=== PATIENT | male | born 1985 | race Two or more races ===

== ENCOUNTER 2024-10-12 03:00 | Emergency (ER) | payer MEDICAID, SELFPAY ==
[2024-10-12 03:07] VITALS: BP 149/91; PULSE 77; RESP 17; TEMP 36.7; O2SAT 99; BMI 23.4
--- NOTE | 2024-10-12 03:37 | PD.EDRME ---
Rapid Medical Screening Exam [facility] Arrival date/time: 10/12/24 03:00 Chief Complaint: Skin/Abscess/Foreign Body Vital signs: Vital Signs Temperature 98.1 F 10/12/24 03:07 Pulse Rate 77 10/12/24 03:07 Respiratory Rate 17 10/12/24 03:07 Blood Pressure 149/91 H 10/12/24 03:07 Pulse Oximetry (%) 99 10/12/24 03:07 Oxygen Delivery Method Room Air 10/12/24 03:07 [facility] Narrative: 38yo male BIBA from home presents to the ED for a chief complaint of a spider bite.
[2024-10-12 03:58] VITALS: PULSE 98; RESP 18; O2SAT 99; BMI 23.0
[2024-10-12 04:14] LABS: Basophils % (Auto) 0 % (0-2.5); Eosinophils # (Auto) 0.3 Thou/mm3 (0.0-0.5); Eosinophils % (Auto) 3 % (0-10); Hematocrit 36.6 % (41.0-53.0); Hemoglobin 12.6 g/dL (13.5-16.0); Immature Granulocytes % (Auto) 0 % (0-0); Immature Granulocytes Auto 0.03 Thou/mm3 (0.00-0.00); Lymphocytes # (Auto) 1.5 Thou/mm3 (1.0-4.8); Lymphocytes % (Auto) 17 % (10-50); Mean Corpuscular HGB Conc 34.4 g/dl (31.0-37.0); Mean Corpuscular Hemoglobin 30.6 pg (25.0-35.0); Mean Corpuscular Volume 89 fL (80-100); Monocytes # (Auto) 0.9 Thou/mm3 (0.0-0.8); Monocytes % (Auto) 11 % (0-12); Neutrophils # (Auto) 5.9 Thou/mm3 (1.8-7.7); Neutrophils % (Auto) 68 % (37-80); Nucleated Red Blood Cell % 0 /100 WBC (0); Platelet Count 221 Thou/mm3 (140-440); RDW Standard Deviation 43.2 fL (35.1-43.9); Red Blood Count 4.12 Miln/mm3 (4.50-5.90); White Blood Count 8.6 Thou/mm3 (3.8-10.6)
[2024-10-12 04:30] LABS: Acetaminophen 3.8 mcg/mL (10.0-20.0); Alanine Aminotransferase 19 U/L (10-49); Albumin, Serum 3.9 gm/dL (3.5-5.0); Albumin/Globulin Ratio 1.4 (1.2-2.2); Alkaline Phosphatase 54 U/L (46-116); Anion Gap 7 (7-16); Aspartate Amino Transferase 23 U/L (0-34); BUN/Creatinine Ratio 23 Ratio (12-20); Bilirubin,Total 0.3 mg/dL (0.3-1.2); Blood Urea Nitrogen 14 mg/dL (9-23); Calcium (Corrected) 9.1 mg/dL (8.5-10.1); Carbon Dioxide 24.3 mMol/L (20.0-31.0); Chloride 110 mMol/L (98-107); Creatinine (Component) 0.6 mg/dL (0.6-1.3); Estimated Creatinine Clearance 180.3 mL/min (>60); Globulin 2.8 gm/dL (2.3-3.5); Glucose 123 mg/dL (74-106); Osmolality,Calculated 282 (275-295); Potassium 3.4 mMol/L (3.4-5.1); Salicylate < 3.0 mg/dL; Sodium 141 mMol/L (136-145); Total Protein 6.7 gm/dL (5.7-8.2); eGFR > 60 See Note
[2024-10-12 04:49] VITALS: BP 125/82; PULSE 73; RESP 19; TEMP 36.5; O2SAT 98
[2024-10-12 06:07] VITALS: BP 103/71; PULSE 65; RESP 18; TEMP 37.1; O2SAT 99
--- NOTE | 2024-10-12 06:11 | PC.NURSE ---
Pt sleeping. arouses to voice.
[2024-10-12 06:13] LABS: Alcohol, Urine Negative (Negative); Amphetamine/Methamp Scrn,U Positive (Negative); Barbiturate Screen,Urine Negative (Negative); Benzodiazepines Screen,Urine Negative (Negative); Benzoylecgonine Screen, Ur Negative (Negative); Fentanyl Screen,Urine Negative (Negative); Opiate Screen,Urine Negative (Negative); THC Screen,Urine Negative (Negative)
[2024-10-12 06:15] VITALS: BP 103/71; PULSE 62; RESP 16; O2SAT 99
--- NOTE | 2024-10-12 06:43 | PD.EDSKIN ---
ED Skin Abcess FB-RME/HPI General Chief complaint: Skin/Abscess/Foreign Body Stated complaint: SPIDER BITE Time Seen by Provider: 10/12/24 03:55 Arrival date/time: 10/12/24 03:00 RME / HPI RME / HPI narrative: 38yo male ZABRINA from home presents to the ED for a chief complaint of a spider bite. DR. FAUST MAIN ED EVALUATION 38 year old male presents to the ED for evaluation of 5-day old spider bite to the left thigh. Reports there is a circular lesion that is worsening. Accompanied by pain to the surrounding area, redness, and draining puss. Patient reports he had been scratching it. No other complaints reported. Denies fevers, chills, rashes. Related Data Previous Rx's ?Medication ?Instructions ?Recorded benzonatate 100 mg capsule 100 mg PO TID PRN cough #30 caps 10/03/18 (Tessalon Perles) codeine 10 mg-guaifenesin 100 mg/5 5 ml PO QHSPRN PRN cough #118 mL 10/03/18 mL oral liquid (Guaifenesin AC) albuterol sulfate 90 mcg/actuation 2 puff inhalation QID #18 grams 06/17/21 aerosol inhaler albuterol sulfate 90 mcg/actuation 2 puff inhalation QID PRN 06/17/21 aerosol inhaler shortness of breath or wheezing #18 grams azithromycin 250 mg tablet See Rx Instructions PO .COMPLEX #6 06/17/21 tabs ibuprofen 800 mg tablet 800 mg PO TID PRN pain #30 tabs 03/10/23 sulfamethoxazole 800 1 tab PO Q12H #14 tabs 02/22/24 mg-trimethoprim 160 mg tablet (Bactrim DS) cephalexin 500 mg capsule 500 mg PO BID 10 days #20 caps 10/12/24 sulfamethoxazole 800 1 tab PO BID 10 days #20 tabs 10/12/24 mg-trimethoprim 160 mg tablet (Bactrim DS) Allergies Allergy/AdvReac Type Severity Reaction Status Date / Time No Known Allergies Allergy Verified 08/31/24 10:08 Review of Systems Review of Systems Narrative Review of Systems: GEN: No fever, no chills HEENT: No ear pain, no congestion, no sore throat PULM: No shortness of breath, no cough, no congestion CV: No chest pain, no palpitations GI: No nausea, no vomiting, no diarrhea, no pain, no constipation : No frequency, no urgency and no dysuria MUSC/SKEL No joint pain, no back pain SKIN: +lesion on left thigh. No rash NEURO: No weakness, no headache Past Medical History Past Medical History CARDIAC: Negative Congestive Heart Failure RESPIRATORY: Negative Chronic Obstructive Pulmonary Disease (COPD) GENITOURINARY: Negative Renal Disease ENDOCRINE: Negative Diabetes Mellitus Type 1 or Diabetes Mellitus Type 2 Social History SMOKING STATUS: Never smoker ED Exam Narrative Physical exam: GENERAL APPEARANCE: Well hydrated, well nourished, in no acute distress. VITALS: All vitals were reviewed and the pulse ox is 99% on room air which is normal according to my interpretation. HEENT: Normocephalic, atramatic. Moist oromucosa. No jaundice CARDIOVASCULAR: Heart regular without S3-S4 or murmur. LUNGS/CHEST: Clear to auscultation bilaterally. Normal inspection. ABDOMEN: Soft, nontender, with normal bowel sounds. Normal inspection and palpation. EXTREMITIES: There is a flat 2cm in diameter superficial lesion to the lateral left thigh with redness and scratch on top, there is scab formation, no abscess, no fluctuance. No edema, clubbing, or cyanosis. SKIN: Warm and dry without rashes. MUSCULOSKELETAL: Normal inspection. No gross deformity, full ROM all extremities NEURO: Alert and oriented x3. Cranial nerves II through XII grossly intact. There are no other motor or sensory deficits noted. PSYCHIATRIC: Normal mood and affect. No psychosis Course Quality Measures none Orders Category Date Time Status Acetaminophen Stat Lab 10/12/24 04:01 Completed Alcohol, Urine Stat Lab 10/12/24 05:17 Completed CBC Stat Lab 10/12/24 04:01 Completed Comprehensive Metabolic Panel Stat Lab 10/12/24 04:01 Completed Drug Screen,Urine Stat Lab 10/12/24 05:17 Completed Salicylate Stat Lab 10/12/24 04:01 Completed Tetanus, Diphtheria Toxoids/Pf [Tenivac-Adult] Med 10/12/24 06:48 Discontinued 0.5 ml IMI .ONCE ONE Trimethoprim/Sulfa 160/800 Ds [Bactrim Ds] Med 10/12/24 06:48 Discontinued 1 tab PO X1 ONE cephALEXin [Keflex] Med 10/12/24 06:48 Discontinued 500 mg PO X1 ONE Vital Signs Vital signs: Vital Signs Temperature 98.1 F 10/12/24 03:07 Pulse Rate 77 10/12/24 03:07 Respiratory Rate 17 10/12/24 03:07 Blood Pressure 149/91 H 10/12/24 03:07 Pulse Oximetry (%) 99 10/12/24 03:07 Oxygen Delivery Method Room Air 10/12/24 03:07 Skin / Abscess / Foreign Body MDM Narrative MDM Narrative:: On exam he had a lesion in his right distal lateral upper leg. There is a superficial ulceration measuring approximately 2 cm in diameter with early scab formation. There is a slight rim of erythema around this superficial ulceration measuring approximately 3 cm in diameter. There is no fluctuance. No evidence of abscess. No pus. No foul odor. No discharge. It seems that the lesion is in the healing phase. There is no need for debridement. There is no incision and drainage needed because there is no abscess. In the emergency department we are giving him tetanus vaccine, Keflex and Bactrim by mouth. Lab results showing a normal CBC. Normal CMP. Alcohol negative. Aspirin negative. Tylenol negative. And U tox is positive for methamphetamine which he openly admits to having used it Patient data External records reviewed:: [facility] previous records (I reviewed ED visit on 08/31/2024) Clinical information provided by:: patient Social determinants that could affect healthcare access:: substance use (Daily methamphetamine use ) Patient has the following chronic illnesses:: No chronic medical history reported How is presenting disease/condition affected by chronic disease/condition?: no chronic disease Evaluation data The following diagnostics were reviewed and interpreted by me:: lab results Lab and/or radiology exams considered but not ordered:: None Interpretation Summary: As noted above Medications / Prescriptions Medications or Prescriptions considered but not ordered:: None Medication administrations:: Medication Administration History Discontinued Medications Cephalexin HCl (Cephalexin 250 Mg Capsule) 500 mg PO X1 ONE Stop: 10/12/24 06:49 Tetanus/Diphtheria Toxoids (Tetanus,Diphtheria Toxoids/Pf (Adult) 0.5 Ml Syringe) 0.5 ml IMi .ONCE ONE Stop: 10/12/24 06:49 Trimethoprim/Sulfamethoxazole (Trimethoprim/Sulfa 160/800 Ds Tablet) 1 tab PO X1 ONE Stop: 10/12/24 06:49 See above Consultations Consultation(s) initiated? (list below): No Diagnosis Skin/Abscess Differential Diagnosis: abscess of skin or subcutaneous tissue, cellulitis, insect bites and contact dermatitis Most likely diagnosis given after review of the tests above:: Cellulitis Methamphetamine use Admission Indicated Admission indicated?: not indicated Admission Request Was there a request for admission?: No Disposition Plan Disposition Plan: Discharge Discharge Attestation Discharge Attestation: The patient and all family members were given an opportunity to ask questions and understood the discharge instructions. Discharge instructions specifically effects, indications for sooner follow up or return to the emergency department, and the expected course of current diagnosis. Patient condition: Stable Discharge Plan Plan Patient Disposition: HOME (Self Care) Disposition Comment: Stable for OR home Prescriptions/Referrals Prescriptions/Med Rec: New cephalexin 500 mg capsule 500 mg PO BID 10 Days Qty: 20 0RF sulfamethoxazole-trimethoprim [Bactrim DS] 800-160 mg tablet 1 tab PO BID 10 Days Qty: 20 0RF No Action albuterol sulfate 90 mcg/actuation HFA aerosol inhaler 2 puff inhalation QID PRN (Reason: shortness of breath or wheezing) Qty: 18 0RF azithromycin 250 mg tablet See Rx Instructions .ROUTE .COMPLEX Qty: 6 0RF Rx Instructions: take 500 mg today (day 1), then 250 mg for 4 days (days 2-5) albuterol sulfate 90 mcg/actuation HFA aerosol inhaler 2 puff inhalation QID Qty: 18 0RF benzonatate [Tessalon Perles] 100 mg capsule 100 mg PO TID PRN (Reason: cough) Qty: 30 0RF codeine-guaifenesin [Guaifenesin AC] 10-100 mg/5 mL liquid 5 ml PO QHSPRN PRN (Reason: cough) Qty: 118 0RF Rx Instructions: Do not take at the same time as you take your lorazepam if you are still taking ibuprofen 800 mg tablet 800 mg PO TID PRN (Reason: pain) Qty: 30 0RF sulfamethoxazole-trimethoprim [Bactrim DS] 800-160 mg tablet 1 tab PO Q12H Qty: 14 0RF Referrals: Kendal Mercado PA-C [Primary Care Provider] - In 1 week Problem List Clinical Impression: Cellulitis Patient/Caregiver Discharge Instructions Education Materials: ED Cellulitis Additional Instructions: Take medications as prescribed. See your doctor or return in 3 days for recheck. Return sooner if any problem. Print Language: Estonian Stand Alone Forms: [employer] Award Info., Patient Portal Info Letter
[2024-10-12] MEDS: cephALEXin 250 MG CAPSULE 500 MG PO (07:02)
[2024-10-12] MEDS: TRIMETHOPRIM/SULFA 160/800 DS TABLET 1 TAB PO (07:03)
[2024-10-12 07:10] VITALS: BP 132/89; PULSE 73; RESP 18; TEMP 36.5; O2SAT 98
[2024-10-12] MEDS: TETANUS,DIPHTHERIA TOXOIDS/PF (ADULT) 0.5 ML SYRINGE IMi (07:12)
== END 2024-10-12 07:50 | disposition home or self-care (01) ==
PROVIDERS: Emergency Medicine; Emergency Provider Emergency Medicine; PCP Physician Assistant
DX: L03.116 Cellulitis of left lower limb (principal)
CPT/HCPCS: 36415; 80053; 80307; 80320; 80329; 85025; 90471; 90714; 99283; A9270; G0480

== ENCOUNTER 2024-11-03 23:49 | Emergency (ER) | payer MEDICAID, SELFPAY ==
[2024-11-03 23:55] VITALS: BP 124/73; PULSE 90; RESP 16; TEMP 37.1; O2SAT 98
[2024-11-03 23:57] VITALS: PULSE 99; RESP 16; O2SAT 95; BMI 25.2
--- NOTE | 2024-11-04 00:25 | PD.EDFALL ---
ED Fall Injury RME/HPI General Chief Complaint: Fall Stated Complaint: BILATERAL FOOT PAIN Time Seen by Provider: 11/04/24 00:04 Source: patient, RN notes reviewed and old records reviewed Arrival date/time: 11/03/24 23:49 Mode of arrival: EMS Limitations: no limitations RME / HPI RME / HPI Narrative: 39yom presents to ED via EMS for fall approximately 10 feet off a roof this afternoon. Patient states he missed a step taking down [employer] lights. He c/o left ankle and left elbow pain. Also reports right foot pain and left knee pain. Denies head injury. Aspirin taken at home with some relief. Related Data Previous Rx's ?Medication ?Instructions ?Recorded benzonatate 100 mg capsule 100 mg PO TID PRN cough #30 caps 10/03/18 (Tessalon Perles) codeine 10 mg-guaifenesin 100 mg/5 5 ml PO QHSPRN PRN cough #118 mL 10/03/18 mL oral liquid (Guaifenesin AC) albuterol sulfate 90 mcg/actuation 2 puff inhalation QID #18 grams 06/17/21 aerosol inhaler albuterol sulfate 90 mcg/actuation 2 puff inhalation QID PRN 06/17/21 aerosol inhaler shortness of breath or wheezing #18 grams azithromycin 250 mg tablet See Rx Instructions PO .COMPLEX #6 06/17/21 tabs ibuprofen 800 mg tablet 800 mg PO TID PRN pain #30 tabs 03/10/23 sulfamethoxazole 800 1 tab PO Q12H #14 tabs 02/22/24 mg-trimethoprim 160 mg tablet (Bactrim DS) ibuprofen 600 mg tablet 600 mg PO Q6H PRN pain #30 tabs 11/04/24 Allergies Allergy/AdvReac Type Severity Reaction Status Date / Time No Known Allergies Allergy Verified 08/31/24 10:08 Review of Systems Review of Systems Systems Reviewed: All systems reviewed, normal except as documented Musculoskeletal Musculoskeletal: Reports arthralgias, Denies deformity and Denies joint swelling Past Medical History Surgical History OTHER SURGICAL HX: Denies past surgical history Social History SMOKING STATUS: Current some day smoker SUBSTANCE USE: marijuana ALCOHOL: Current (Social) Past Medical History Comments PMH COMMENT: Denies past medical history ED Exam General Limitations: Present no limitations General appearance: Present alert and in no apparent distress Head Head exam: Present atraumatic and normocephalic Eye Eye exam: Present normal appearance, PERRL and EOMI ENT ENT exam: Present normal exam and mucous membranes moist Neck Neck exam: Present normal inspection and full ROM Chest Chest inspection: Present normal inspection and symmetric chest wall rise Respiratory Respiratory exam: Present normal lung sounds bilaterally; Absent respiratory distress Cardiovascular Cardiovascular exam: Present regular rate and normal rhythm Extremities Exam Extremities exam: Present full ROM and tenderness (Left ankle/elbow, mild); Absent joint swelling Back Exam Back exam: Present full ROM; Absent tenderness Neurological Exam Neurological exam: Present alert and oriented X3 Psychiatric Psychiatric exam: Present normal affect and normal mood Skin Skin exam: Present warm, dry, intact and normal color Course Quality Measures none Orders Category Date Time Status Crutches .NOW Care 11/04/24 01:28 Completed jai wrap [Splint / Immobilizer] STAT Care 11/04/24 01:28 Completed XR ankle comp LT min 3V Stat Exams 11/04/24 00:26 Completed XR elbow comp LT min 3V Stat Exams 11/04/24 00:26 Completed XR foot comp RT min 3V Stat Exams 11/04/24 00:30 Completed XR knee LT 3V Stat Exams 11/04/24 00:44 Completed Ibuprofen Tab [Motrin Tab] Med 11/04/24 00:26 Discontinued 800 mg PO X1 ONE Vital Signs Vital signs: Vital Signs Temperature 98.7 F 11/03/24 23:55 Pulse Rate 90 11/03/24 23:55 Respiratory Rate 16 11/03/24 23:55 Blood Pressure 124/73 11/03/24 23:55 Pulse Oximetry (%) 98 11/03/24 23:55 Oxygen Delivery Method Room Air 11/03/24 23:55 Fall MDM Narrative MDM Narrative:: 39yom presents to ED via EMS for fall approximately 10 feet off a roof this afternoon. Patient states he missed a step taking down [place] lights. He c/o left ankle and left elbow pain. Also reports right foot pain and left knee pain. Denies head injury. Aspirin taken at home with some relief. Xrays negative. Patient is neurovascularly intact. Encouraged RICE therapy, motrin/tylenol prn pain. Stable for dc, RTED precautions given. Patient data External records reviewed:: [facility] previous records (10/12/24 ED visit for cellulitis) Clinical information provided by:: patient and EMS Social determinants that could affect healthcare access:: other (specify) (poor access to healthcare) Patient has the following chronic illnesses:: none How is presenting disease/condition affected by chronic disease/condition?: no chronic disease Evaluation data The following diagnostics were reviewed and interpreted by me:: radiology exam(s) Lab and/or radiology exams considered but not ordered:: none Interpretation Summary: ankle xrays: no fx per my read elbow xrays: no fx per my read knee xrays: no fx per my read foot xrays: no fx per my read Medications / Prescriptions Medications or Prescriptions considered but not ordered:: none Medication administrations:: Medication Administration History Discontinued Medications Ibuprofen (Ibuprofen Tab 400 Mg Tablet) 800 mg PO X1 ONE Stop: 11/04/24 00:27 Last Admin: 11/04/24 00:34 Dose: 800 mg Documented By: above medication administered in ED Consultations Consultation(s) initiated? (list below): No Diagnosis Fall Differential Diagnosis: other (fracture, dislocation, sprain, strain, contusion, msk pain) Most likely diagnosis given after review of the tests above:: Fall, contusion, sprain Admission Indicated Admission indicated?: not indicated Admission Request Was there a request for admission?: No Disposition Plan Disposition Plan: Discharge Discharge Attestation Discharge Attestation: The patient and all family members were given an opportunity to ask questions and understood the discharge instructions. Discharge instructions specifically effects, indications for sooner follow up or return to the emergency department, and the expected course of current diagnosis. Patient condition: Stable Discharge Plan Plan Patient Disposition: HOME (Self Care) Patient condition on transfer: Stable Prescriptions/Referrals Prescriptions/Med Rec: New ibuprofen 600 mg tablet 600 mg PO Q6H PRN (Reason: pain) Qty: 30 0RF No Action albuterol sulfate 90 mcg/actuation HFA aerosol inhaler 2 puff inhalation QID PRN (Reason: shortness of breath or wheezing) Qty: 18 0RF azithromycin 250 mg tablet See Rx Instructions .ROUTE .COMPLEX Qty: 6 0RF Rx Instructions: take 500 mg today (day 1), then 250 mg for 4 days (days 2-5) albuterol sulfate 90 mcg/actuation HFA aerosol inhaler 2 puff inhalation QID Qty: 18 0RF benzonatate [Tessalon Perles] 100 mg capsule 100 mg PO TID PRN (Reason: cough) Qty: 30 0RF codeine-guaifenesin [Guaifenesin AC] 10-100 mg/5 mL liquid 5 ml PO QHSPRN PRN (Reason: cough) Qty: 118 0RF Rx Instructions: Do not take at the same time as you take your lorazepam if you are still taking ibuprofen 800 mg tablet 800 mg PO TID PRN (Reason: pain) Qty: 30 0RF sulfamethoxazole-trimethoprim [Bactrim DS] 800-160 mg tablet 1 tab PO Q12H Qty: 14 0RF Referrals: Kendal Mercado PA-C [Primary Care Provider] - In 1 week Problem List Clinical Impression: Left ankle sprain Patient/Caregiver Discharge Instructions Education Materials: ED Ankle Sprain (Adult) Print Language: Georgian Stand Alone Forms: [employer]ny Award Info., Patient Portal Info Letter PA/FINANCIAL SERVICES ASSOCIATE Supervising Physician PA/FINANCIAL SERVICES ASSOCIATE Supervising Physician: [email or web address]
--- NOTE | 2024-11-04 00:26 | XR_ITS ---
EXAMINATION: Ankle, left 3 views . Technique: Ankle AP, oblique, lateral 3 views Date and time of exam: November 04, 2024 0035 hrs. Indications: Patient fell today with injury to the ankle, ankle pain. Findings: Bimalleolar soft tissue swelling No acute ankle fracture No dislocation Impression: No acute ankle fracture
--- NOTE | 2024-11-04 00:26 | XR_ITS ---
Examination: Left elbow 3 views Technique: Elbow AP, oblique, lateral 3 views Exam date and time: November 04, 2024 0035 hrs. Indications: Patient fell today with injury to the elbow, elbow pain. Findings: No acute fracture No elbow effusion No elbow dislocation Impression: No acute fracture.
--- NOTE | 2024-11-04 00:30 | XR_ITS ---
Examination: Foot, right, 3 views Technique: AP, oblique, lateral views foot, 3 views Date and time of exam: Patient fell today with injury to foot, foot pain Findings: Old bone density at the fibular tip Old bone density, likely accessory bone at the base of the fifth metatarsal No acute fracture No foreign body Impression: No acute fracture
[2024-11-04] MEDS: IBUPROFEN TAB 400 MG TABLET 800 MG PO (00:34)
--- NOTE | 2024-11-04 00:44 | XR_ITS ---
Examination: Knee, left , 3 views Technique: Knee AP, lateral, oblique 3 views Date and time of exam: November 04, 2024 0050 hrs. Indications: Patient fell today with injury to the knee, knee pain Findings: Mild tricompartment osteoarthritis Small knee effusion No acute fracture Impression: No acute fracture
[2024-11-04 01:41] VITALS: BP 126/70; PULSE 88; RESP 18; TEMP 36.7; O2SAT 98
== END 2024-11-04 01:44 | disposition home or self-care (01) ==
PROVIDERS: Emergency Provider Emergency Medicine; PCP Physician Assistant
DX: S93.402A Sprain of unspecified ligament of left ankle, initial encounter (principal); X58.XXXA Exposure to other specified factors, initial encounter; M79.671 Pain in right foot
CPT/HCPCS: 73080; 73562; 73610; 73630; 99283; A9270

== ENCOUNTER 2025-01-12 20:45 | Emergency (ER) | payer MEDICAID, SELFPAY ==
[2025-01-12 20:46] VITALS: PULSE 102; RESP 18; O2SAT 99; BMI 24.4
--- NOTE | 2025-01-12 21:51 | XR_ITS ---
Examination: Abdomen sonogram, Limited Date and time of exam: January 13, 2020 5:10 AM INDICATIONS: Right upper abdominal pain beginning 3 days ago. Technique: Real-time diaz scale transabdominal sonographic images of the upper abdomen obtained. Findings: Normal gallbladder Normal common bile duct 0.2 cm Pancreatic head 2.0 cm Liver 15.6 cm noted liver lesions Normal hepatopedal portal venous flow Patent IVC IMPRESSION: Negative study
--- NOTE | 2025-01-12 21:52 | PD.EDRME ---
Rapid Medical Screening Exam RME Arrival date/time: 01/12/25 20:45 Chief Complaint: Abdominal Pain Time Seen by Provider: 01/12/25 20:50 RME Narrative: RUQ pain started today. No n/v/d.
--- NOTE | 2025-01-12 22:00 | EDNOTE_ITS ---
ED Abdominal Pain RME/HPI General Chief Complaint: Abdominal Pain Stated complaint: LOWER/UPPER ABD PAIN Time seen by provider: 01/12/25 20:50 Arrival date/time: 01/12/25 20:45 Source: patient, RN notes reviewed and old records reviewed Mode of arrival: ambulatory Limitations: no limitations RME / HPI RME / HPI narrative: 39yom presents to ED for RUQ pain that started today. No fever, shortness of breath, chest pain, n/v/d or urinary symptoms reported. No medications or treatments since onset. 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 Patient was wearing a mask but states it broke. Related Data Previous Rx's ?Medication ?Instructions ?Recorded benzonatate 100 mg capsule 100 mg PO TID PRN cough #30 caps 10/03/18 (Tessalon Perlkim) codeine 10 mg-guaifenesin 100 mg/5 5 ml PO QHSPRN PRN cough #118 mL 10/03/18 mL oral liquid (Guaifenesin AC) albuterol sulfate 90 mcg/actuation 2 puff inhalation Q ID #18 grams 06/17/21 aerosol inhaler albuterol sulfate 90 mcg/actuation 2 puff inhalation Q ID PRN 06/17/21 aerosol inhaler shortness of breath or wheez ing #18 grams azithromycin 250 mg tablet See Rx Instructions PO .COM PLEX #6 06/17/21 tabs ibuprofen 800 mg tablet 800 mg PO TID PRN pain #30 t abs 03/10/23 sulfamethoxazole 800 1 tab PO Q12H #14 tabs 02/21 mg-trimethoprim 160 mg tablet (Bactrim DS) ibuprofen 600 mg tablet 600 mg PO Q6H PRN pain #30 t abs 11/04/24 albuterol sulfate 90 mcg/actuation 2 puff inhalation Q 6H PRN 01/12/25 aerosol inhaler shortness of breath or wheez ing #18 grams ibuprofen 600 mg tablet 600 mg PO Q6H PRN pain #30 t abs 01/12/25 Allergies Allergy/AdvReac Type Severity Reaction Status Date / Time No Known Allergies Allergy Verified 08/31/24 10:08 Review of Systems Review of Systems Systems Reviewed: All systems reviewed, normal except as documented Constitutional Constitutional: Denies chills and Denies fever(s) Cardiovascular Cardiovascular: Denies chest pain and Denies dyspnea Respiratory Respiratory: Denies cough and Denies dyspnea Gastrointestinal Gastrointestinal: Reports abdominal pain, Denies loose stools, Denies nausea and Denies vomiting Genitourinary Genitourinary: Denies flank pain Past Medical History Surgical History OTHER SURGICAL HX: Denies past surgical history Social History SMOKING STATUS: Current some day smoker SUBSTANCE USE: marijuana ALCOHOL: Current (Social) Past Medical History Comments PMH COMMENT: Denies past medical history ED Exam General Limitations: Present no limitations General appearance: Present alert and in no apparent distress Head Head exam: Present atraumatic and normocephalic Eye Eye exam: Present normal appearance, PERRL and EOMI ENT ENT exam: Present normal exam and mucous membranes moist Neck Neck exam: Present normal inspection and full ROM Chest Chest inspection: Present normal inspection and symmetric chest wall rise Respiratory Respiratory exam: Present normal lung sounds bilaterally and other (No wheezing, rales or rhonchi); Absent respiratory distress Cardiovascular Cardiovascular exam: Present regular rate and normal rhythm Abdominal Exam Abdominal exam: Present soft and tenderness (RUQ, mild); Absent distention, guarding or rebound Extremities Exam Extremities exam: Present normal inspection and full ROM Back Exam Back exam: Absent CVA tenderness (R) or CVA tenderness (L) Neurological Exam Neurological exam: Present alert and oriented X3 Psychiatric Psychiatric exam: Present normal affect and normal mood Skin Skin exam: Present warm, dry, intact and normal color Course Quality Measures none Orders Category Date Time Status CXR [XR chest 1V] Stat Exams 01/12/25 22:01 Completed US gall bladder Stat Exams 01/12/25 21:51 Completed CBC Stat Lab 01/12/25 22:19 Completed CMP [Comprehensive Metabolic Panel] Stat Lab 01/12/25 22:19 Completed Lipase Stat Lab 01/12/25 22:19 Completed UA [Urinalysis] Stat Lab 01/12/25 22:40 Completed Acetaminophen Tab [Tylenol ES Tab] Med 01/12/25 21:52 Discontinued 1,000 mg PO X1 ONE Vital Signs Vital signs: Vital Signs Temperature 98.6 F 01/12/25 22:07 Pulse Rate 105 H 01/12/25 22:07 Respiratory Rate 18 01/12/25 22:07 Blood Pressure 123/84 01/12/25 22:07 Pulse Oximetry (%) 97 03/22/25 22:07 Abdominal Pain MDM MDM Narrative MDM Narrative:: 39yom presents to ED for RUQ pain that started today. No fever, shortness of breath, chest pain, n/v/d or urinary symptoms reported. No medications or tr eatments since onset. 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 Patient was wearing a mask but states it broke. Patient updated on labs and imaging. ED workup reassuring. Encouraged adequate fluids, Motrin/Tylenol prn pain. Stable for discharge, RTED precautions given. Patient data External records reviewed:: [facility] previous records (11/04/2024 ED visit for left ankle) Clinical information provided by:: patient Social determinants that could affect healthcare access:: other (specify) (Poor access to healthcare) Patient has the following chronic illnesses:: None How is presenting disease/condition affected by chronic disease/condition?: no chronic disease Evaluation data The following diagnostics were reviewed and interpreted by me:: lab results and radiology exam(s) Lab and/or radiology exams considered but not ordered:: none Interpretation Summary: CXR: No acute process per my read Abd US: no gallstones per my read Medications / Prescriptions Medications or Prescriptions considered but not ordered:: No antibiotics recommended at this time Medication administrations:: Medication Administration History Discontinued Medications Acetaminophen (Acetaminophen 500 Mg Tablet) 1,000 mg PO X1 ONE Stop: 01/12/25 21:53 Last Admin: 01/12/25 22:34 Dose: 1,000 mg Documented By: EE Above medication administered in ED Consultations Consultation(s) initiated? (list below): No Diagnosis Differential diagnosis abdominal pain: other (Cholelithiasis, cholecystitis, PUD, constipation, nonspecific abdominal pain) Most likely diagnosis given after review of the tests above:: Abdominal pain Admission Indicated Admission indicated?: not indicated Admission Request Was there a request for admission?: No Disposition Plan Disposition Plan: Discharge Discharge Attestation Discharge Attestation: The patient and all family members were given an opportunity to ask questions and understood the discharge instructions. Discharge instructions specifically effects, indications for sooner follow up or return to the emergency department, and the expected course of current diagnosis. Patient condition: Stable Discharge Plan Plan Patient Disposition: HOME (Self Care) Patient condition on transfer: Stable Prescriptions/Referrals Prescriptions/Med Rec: New ibuprofen 600 mg tablet 600 mg PO Q6H PRN (Reason: pain) Qty: 30 0RF albuterol sulfate 90 mcg/actuation HFA aerosol inhaler 2 puff inhalation Q6H PRN (Reason: shortness of breath or wheezing) Qty: 18 0RF No Action albuterol sulfate 90 mcg/actuation HFA aerosol inhaler 2 puff inhalation QID PRN (Reason: shortness of breath or wheezing) Qty: 18 0RF azithromycin 250 mg tablet See Rx Instructions .ROUTE .COMPLEX Qty: 6 0RF Rx Instructions: take 500 mg today (day 1), then 250 mg for 4 days (days 2-5) albuterol sulfate 90 mcg/actuation HFA aerosol inhaler 2 puff inhalation QID Qty: 18 0RF benzonatate [Tessalon Perles] 100 mg capsule 100 mg PO TID PRN (Reason: cough) Qty: 30 0RF codeine-guaifenesin [Guaifenesin AC] 10-100 mg/5 mL liquid 5 ml PO QHSPRN PRN (Reason: cough) Qty: 118 0RF Rx Instructions: Do not take at the same time as you take your lorazepam if you are still taking ibuprofen 800 mg tablet 800 mg PO TID PRN (Reason: pain) Qty: 30 0RF sulfamethoxazole-trimethoprim [Bactrim DS] 800-160 mg tablet 1 tab PO Q12H Qty: 14 0RF ibuprofen 600 mg tablet 600 mg PO Q6H PRN (Reason: pain) Qty: 30 0RF Referrals: Kendal Mercado PA-C [Primary Care Provider] - In 1 week Problem List Clinical Impression: Abdominal pain Patient/Caregiver Discharge Instructions Education Materials: Abdominal Pain Print Language: Italian Stand Alone Forms: Anny Award Info., Patient Portal Info Letter PA/BOARDING HOUSE MANAGER Supervising Physician PA/ADRIANA Supervising Physician: Isa
--- NOTE | 2025-01-12 22:01 | XR_ITS ---
Examination: PA chest single view TECHNIQUE: PA chest single view Examination date and time: January 12, 2025, 2110 hours INDICATIONS: Patient inhaled fumes today. FINDINGS: Normal heart size No pneumonia or pulmonary edema Intact osseous structures IMPRESSION: No active disease
[2025-01-12 22:07] VITALS: BP 123/84; PULSE 105; RESP 18; TEMP 37; O2SAT 97
[2025-01-12 22:28] LABS: Basophils % (Auto) 1 % (0-2.5); Eosinophils # (Auto) 0.3 Thou/mm3 (0.0-0.5); Eosinophils % (Auto) 4 % (0-10); Hematocrit 44.4 % (41.0-53.0); Immature Granulocytes % (Auto) 0 % (0-0); Immature Granulocytes Auto 0.02 Thou/mm3 (0.00-0.00); Lymphocytes # (Auto) 1.8 Thou/mm3 (1.0-4.8); Lymphocytes % (Auto) 23 % (10-50); Mean Corpuscular HGB Conc 33.8 g/dl (31.0-37.0); Mean Corpuscular Hemoglobin 29.8 pg (25.0-35.0); Mean Corpuscular Volume 88 fL (80-100); Monocytes # (Auto) 0.6 Thou/mm3 (0.0-0.8); Monocytes % (Auto) 8 % (0-12); Neutrophils # (Auto) 5.1 Thou/mm3 (1.8-7.7); Neutrophils % (Auto) 65 % (37-80); Nucleated Red Blood Cell % 0 /100 WBC (0); Platelet Count 258 Thou/mm3 (140-440); RDW Standard Deviation 46.2 fL (35.1-43.9); Red Blood Count 5.04 Miln/mm3 (4.50-5.90); White Blood Count 7.9 Thou/mm3 (3.8-10.6)
[2025-01-12] MEDS: ACETAMINOPHEN 500 MG TABLET 1000 MG PO (22:34)
[2025-01-12 22:53] LABS: Alanine Aminotransferase 23 U/L (10-49); Albumin, Serum 4.7 gm/dL (3.5-5.0); Albumin/Globulin Ratio 1.5 (1.2-2.2); Alkaline Phosphatase 54 U/L (46-116); Anion Gap 7 (7-16); Aspartate Amino Transferase 29 U/L (0-34); BUN/Creatinine Ratio 20 Ratio (12-20); Bilirubin,Total 0.7 mg/dL (0.3-1.2); Blood Urea Nitrogen 16 mg/dL (9-23); Calcium 10.6 mg/dL (8.3-10.6); Calcium (Corrected) 10.6 mg/dL (8.5-10.1); Carbon Dioxide 30.5 mMol/L (20.0-31.0); Chloride 102 mMol/L (98-107); Creatinine (Component) 0.8 mg/dL (0.6-1.3); Estimated Creatinine Clearance 134.7 mL/min (>60); Globulin 3.2 gm/dL (2.3-3.5); Glucose 96 mg/dL (74-106); Lipase 42 U/L (12-53); Osmolality,Calculated 278 (275-295); Potassium 4.8 mMol/L (3.4-5.1); Sodium 139 mMol/L (136-145); Total Protein 7.9 gm/dL (5.7-8.2); eGFR > 60 See Note
[2025-01-12 22:55] LABS: Collection Type, Urine Clean Catch; RBC,Urine 0 /hpf (0-3); Squamous Epithelial Cell,Urine 0 /hpf (0-5)
[2025-01-12 23:04] LABS: Bilirubin,Urine Negative (Negative); Blood,Urine Negative (Negative); Clarity,Urine Clear (Clear/Hazy); Color,Urine Colorless (Lt Yel-Yel); Glucose, Urine Negative (Negative); Ketones,Urine Negative (Negative); Leukocyte Esterase,Urine Negative (Negative); Nitrite,Urine Negative (Negative); Protein,Urine Negative (Neg - Trace); Specific Gravity,Urine 1.008 (1.001-1.035); Urobilinogen,Urine Negative mg/dL (0.0-1.0); WBC,Urine 1 /hpf (0-5)
== END 2025-01-13 00:02 | disposition home or self-care (01) ==
PROVIDERS: Physician Assistant; Emergency Provider Emergency Medicine; PCP Physician Assistant
DX: R10.11 Right upper quadrant pain (principal)
CPT/HCPCS: 36415; 71045; 76705; 80053; 81001; 83690; 85025; 99284; A9270

== ENCOUNTER 2025-01-31 20:45 | Emergency (ER) | payer MEDICAID, SELFPAY ==
[2025-01-31 20:45] VITALS: PULSE 90; RESP 18; O2SAT 95; BMI 24.1
[2025-01-31 22:09] VITALS: BP 108/63; PULSE 89; RESP 18; TEMP 36.6; O2SAT 95
--- NOTE | 2025-01-31 22:21 | XR_ITS ---
Examination: CT chest, without intravenous contrast. CT abdomen, without intravenous contrast. CT pelvis, without intravenous contrast. 2-D sagittal and coronal reconstructions. 3-D reconstructions. Date and time of exam:January 31, 2025 1042 hrs. Indications: Patient fell from a roof one week ago with injury to the chest and abdomen, chest pain abdomen pain CTDI vol (mgy) 6.42 DLP (MGycm)525 Technique: Multiple CT images, 3.0 mm slice thickness, obtained chest, abdomen, pelvis, with the high-resolution 64 slice scanner.. Sagittal and coronal 2-D reconstructions are obtained. 3-D reconstructions Low dose protocols were performed. One or more of the following dose reduction techniques were used; automated exposure control, adjustment of the mA and/or KV according to patient size, use of iterative reconstruction technique. Findings: Thoracic aorta pulmonary arteries appear intact on this noncontrast study No pneumothorax pulmonary contusion or hemothorax Manubrium, body the sternum thoracic and lumbar vertebral bodies as well as sacral segments appear intact Ribs appear intact No liver splenic or renal laceration 2 mm lower pole left renal calculus Contracted gallbladder Normal pancreas Abdominal aorta intact, no free blood in the abdomen Normal appendix Negative for pneumoperitoneum Urinary bladder intact Iliac bones acetabular regions anterior rami and hips appear intact Skin thickening and possible mild soft tissue contusion anterior right thigh axial image 342 Impression: Thoracic aorta pulmonary arteries intact No hemopericardium, pneumothorax, pulmonary contusion or hemothorax No abdominal parenchymal laceration Abdominal aorta intact No free blood in the abdomen or pelvis Osseous structures are intact Possible soft tissue contusion anterior upper right thigh, clinical correlation advised
--- NOTE | 2025-01-31 22:37 | PD.EDANIML ---
ED Animal Bite RME/HPI General Chief Complaint: Animal Bite Stated Complaint: SPIDER BITE X 4 HOURS Time Seen by Provider: 01/31/25 22:20 Arrival date/time: 01/31/25 20:45 39M with history of drug use presents to ED with R thigh spider bite. Separately, patient has had ab and chest pain since fall off ladder 1 month ago. No torso imaging was done after initial accident. Limitations: no limitations Related Data Previous Rx's ?Medication ?Instructions ?Recorded benzonatate 100 mg capsule 100 mg PO TID PRN cough #30 caps 10/03/18 (Tessalon Perles) codeine 10 mg-guaifenesin 100 mg/5 5 ml PO QHSPRN PRN cough #118 mL 10/03/18 mL oral liquid (Guaifenesin AC) albuterol sulfate 90 mcg/actuation 2 puff inhalation QID #18 grams 06/17/21 aerosol inhaler albuterol sulfate 90 mcg/actuation 2 puff inhalation QID PRN 06/17/21 aerosol inhaler shortness of breath or wheezing #18 grams azithromycin 250 mg tablet See Rx Instructions PO .COMPLEX #6 06/17/21 tabs ibuprofen 800 mg tablet 800 mg PO TID PRN pain #30 tabs 03/10/23 sulfamethoxazole 800 1 tab PO Q12H #14 tabs 02/22/24 mg-trimethoprim 160 mg tablet (Bactrim DS) ibuprofen 600 mg tablet 600 mg PO Q6H PRN pain #30 tabs 11/04/24 albuterol sulfate 90 mcg/actuation 2 puff inhalation Q6H PRN 01/12/25 aerosol inhaler shortness of breath or wheezing #18 grams ibuprofen 600 mg tablet 600 mg PO Q6H PRN pain #30 tabs 01/12/25 mupirocin 2 % topical ointment 1 applic topical BID #15 grams 01/31/25 Allergies Allergy/AdvReac Type Severity Reaction Status Date / Time No Known Allergies Allergy Verified 08/31/24 10:08 Review of Systems Review of Systems Systems Reviewed: All systems reviewed, normal except as documented Constitutional Constitutional: Reports system reviewed and no additional complaints, except as documented, Denies fever(s) and Denies headache(s) ENT Ears, Nose, Mouth, and Throat: Denies disequilibrium and Denies headache(s) Cardiovascular Cardiovascular: Reports system reviewed and no additional complaints, except as documented, Reports as per HPI, Reports chest pain and Denies dyspnea Respiratory Respiratory: Reports system reviewed and no additional complaints, except as documented, Denies cough and Denies dyspnea Gastrointestinal Gastrointestinal: Reports system reviewed and no additional complaints, except as documented, Reports as per HPI, Reports abdominal pain, Denies nausea and Denies vomiting Integumentary/Breasts Skin/Breast: Reports as per HPI and Reports skin pain Neurologic Neurologic: Reports system reviewed and no additional complaints, except as documented, Denies confusion, Denies disequilibrium and Denies headache(s) Psychiatric Psychiatric: Denies confusion Past Medical History Past Medical History CARDIAC: Negative Congestive Heart Failure RESPIRATORY: Negative Chronic Obstructive Pulmonary Disease (COPD) GENITOURINARY: Negative Renal Disease ENDOCRINE: Negative Diabetes Mellitus Type 1 or Diabetes Mellitus Type 2 Social History SMOKING STATUS: Current every day smoker SUBSTANCE USE: marijuana ED Exam General Limitations: Present no limitations General appearance: Present alert and in no apparent distress Head Head exam: Present atraumatic Eye Eye exam: Present normal appearance, PERRL and EOMI ENT ENT exam: Present normal exam, normal oropharynx and mucous membranes moist Neck Neck exam: Present normal inspection, full ROM and trachea midline Chest Chest inspection: Present normal inspection and symmetric chest wall rise Respiratory Respiratory exam: Present normal lung sounds bilaterally Cardiovascular Cardiovascular exam: Present regular rate, normal rhythm and normal heart sounds Abdominal Exam Abdominal exam: Present soft and normal bowel sounds Extremities Exam Extremities exam: Present full ROM Expanded Lower Extremity Exam Upper leg exam: Present full ROM, swelling (R thigh bite arcenio) and erythema Back Exam Back exam: Present normal inspection and full ROM Neurological Exam Neurological exam: Present alert, oriented X3 and CN II-XII intact Psychiatric Psychiatric exam: Present normal affect and normal mood Skin Skin exam: Present warm, dry, intact and normal color Course Quality Measures none Orders Category Date Time Status CT chest abdomen pelvis wo Stat Exams 01/31/25 22:21 Completed Vital Signs Vital signs: Vital Signs Temperature 98 F 01/31/25 22:09 Pulse Rate 89 01/31/25 22:09 Respiratory Rate 18 01/31/25 22:09 Blood Pressure 108/63 01/31/25 22:09 Pulse Oximetry (%) 95 01/31/25 22:09 Oxygen Delivery Method Room Air 01/31/25 22:09 O2 at 95% on RA and WNLs Animal Bite MDM Narrative MDM Narrative:: 39M with history of drug use presents to ED with R thigh spider bite. Separately, patient has had ab and chest pain since fall off ladder 1 month ago. No torso imaging was done after initial accident. Physical exam reveals no ab tenderness. Normal WOB. Bite arcenio on R thigh with some redness and tenderness. Patient is afebrile, calm, and alert. CT no acute abnormalities. Spider bite likely causing local inflammatory reaction, but will give ABX cream. Patient data External records reviewed:: [facility] previous records Clinical information provided by:: patient Social determinants that could affect healthcare access:: substance use Patient has the following chronic illnesses:: drug use How is presenting disease/condition affected by chronic disease/condition?: exacerbated by Evaluation data The following diagnostics were reviewed and interpreted by me:: radiology exam(s) Lab and/or radiology exams considered but not ordered:: ordered Interpretation Summary: above Medications / Prescriptions Medications or Prescriptions considered but not ordered:: not ordered Medication administrations:: n/a Consultations Consultation(s) initiated? (list below): No Diagnosis Differential diagnosis animal bite: bite by animal, dog bite, rabies contact and other (insect bite, rib fx, contusions, spider bite and soft tissue contusion) Most likely diagnosis given after review of the tests above:: spider bite and soft tissue contusion Admission Indicated Admission indicated?: not indicated Admission Request Was there a request for admission?: No Disposition Plan Disposition Plan: Discharge Discharge Attestation Discharge Attestation: The patient and all family members were given an opportunity to ask questions and understood the discharge instructions. Discharge instructions specifically effects, indications for sooner follow up or return to the emergency department, and the expected course of current diagnosis. Patient condition: Stable Discharge Plan Plan Patient Disposition: HOME (Self Care) Disposition Comment: Stable Prescriptions/Referrals Prescriptions/Med Rec: New mupirocin 2 % ointment 1 applic topical BID Qty: 15 0RF No Action albuterol sulfate 90 mcg/actuation HFA aerosol inhaler 2 puff inhalation QID PRN (Reason: shortness of breath or wheezing) Qty: 18 0RF azithromycin 250 mg tablet See Rx Instructions .ROUTE .COMPLEX Qty: 6 0RF Rx Instructions: take 500 mg today (day 1), then 250 mg for 4 days (days 2-5) albuterol sulfate 90 mcg/actuation HFA aerosol inhaler 2 puff inhalation QID Qty: 18 0RF benzonatate [Tessalon Perles] 100 mg capsule 100 mg PO TID PRN (Reason: cough) Qty: 30 0RF codeine-guaifenesin [Guaifenesin AC] 10-100 mg/5 mL liquid 5 ml PO QHSPRN PRN (Reason: cough) Qty: 118 0RF Rx Instructions: Do not take at the same time as you take your lorazepam if you are still taking ibuprofen 800 mg tablet 800 mg PO TID PRN (Reason: pain) Qty: 30 0RF sulfamethoxazole-trimethoprim [Bactrim DS] 800-160 mg tablet 1 tab PO Q12H Qty: 14 0RF ibuprofen 600 mg tablet 600 mg PO Q6H PRN (Reason: pain) Qty: 30 0RF ibuprofen 600 mg tablet 600 mg PO Q6H PRN (Reason: pain) Qty: 30 0RF albuterol sulfate 90 mcg/actuation HFA aerosol inhaler 2 puff inhalation Q6H PRN (Reason: shortness of breath or wheezing) Qty: 18 0RF Referrals: No Primary/Family,Physician [Primary Care Provider] - In 1 week Problem List Clinical Impression: Contusion of soft tissue, Spider bite Patient/Caregiver Discharge Instructions Additional Instructions: Please follow-up with PCP within 24-48 hours and return immediately if symptoms worsen. Print Language: Cuban Stand Alone Forms: Patient Portal Info Letter PA/MOUNTAIN BIKE GUIDE Supervising Physician PA/M[employer] GUIDE Supervising Physician: Dr. Kruse
== END 2025-01-31 23:49 | disposition home or self-care (01) ==
PROVIDERS: Emergency Provider Emergency Medicine
DX: T63.301A Toxic effect of unspecified spider venom, accidental (unintentional), initial encounter (principal); R07.9 Chest pain, unspecified; F17.200 Nicotine dependence, unspecified, uncomplicated
CPT/HCPCS: 71250; 74176; 99284

== ENCOUNTER 2025-03-08 12:51 | Emergency (ER) | payer MEDICAID, SELFPAY ==
[2025-03-08 12:52] VITALS: BMI 24.4
[2025-03-08 13:00] VITALS: BP 114/75; PULSE 96; RESP 18; TEMP 36.5; O2SAT 97; BMI 24.4
--- NOTE | 2025-03-08 13:03 | XR_ITS ---
Examination: CT abdomen and pelvis without contrast. Coronal 3-D reconstructions. Sagittal 2-D reconstructions. Date and time of exam:March 08, 2025 1334 hours INDICATIONS: Generalized abdominal pain and nausea today CTDI: vol (mGy): 7.02 DLP: (mGycm): 157 Technique: Axial images of the abdomen have been obtained, 3 mm slice thickness Intravenous contrast material has not been administered. Low dose protocols were performed. One or more of the following dose reduction techniques were used; automated exposure control, adjustment of the mA and/or KV according to patient size, use of iterative reconstruction technique. Findings: No focal liver or splenic lesions Contracted gallbladder No pancreatic or adrenal mass 2 mm right renal calculus, no hydronephrosis or ureteral calculi Normal appendix No bowel obstruction No diverticulitis No bladder mass Bladder wall thickening up to 8 mm No prostatomegaly Moderate disc narrowing L5-S1 IMPRESSION: 2 mm nonobstructing right renal calculus Normal appendix Cystitis pattern
[2025-03-08 13:33] LABS: Basophils % (Auto) 1 % (0-2.5); Eosinophils # (Auto) 0.2 Thou/mm3 (0.0-0.5); Eosinophils % (Auto) 3 % (0-10); Hematocrit 43.8 % (41.0-53.0); Hemoglobin 14.6 g/dL (13.5-16.0); Immature Granulocytes % (Auto) 0 % (0-0); Immature Granulocytes Auto 0.01 Thou/mm3 (0.00-0.00); Lymphocytes % (Auto) 30 % (10-50); Mean Corpuscular HGB Conc 33.3 g/dl (31.0-37.0); Mean Corpuscular Hemoglobin 30.5 pg (25.0-35.0); Mean Corpuscular Volume 92 fL (80-100); Monocytes # (Auto) 0.5 Thou/mm3 (0.0-0.8); Monocytes % (Auto) 7 % (0-12); Neutrophils # (Auto) 3.8 Thou/mm3 (1.8-7.7); Neutrophils % (Auto) 59 % (37-80); Nucleated Red Blood Cell % 0 /100 WBC (0); Platelet Count 284 Thou/mm3 (140-440); RDW Standard Deviation 48.3 fL (35.1-43.9); Red Blood Count 4.78 Miln/mm3 (4.50-5.90); White Blood Count 6.4 Thou/mm3 (3.8-10.6)
[2025-03-08 13:50] LABS: Alanine Aminotransferase 29 U/L (10-49); Albumin, Serum 4.5 gm/dL (3.5-5.0); Albumin/Globulin Ratio 1.6 (1.2-2.2); Alkaline Phosphatase 51 U/L (46-116); Anion Gap 9 (7-16); Aspartate Amino Transferase 28 U/L (0-34); BUN/Creatinine Ratio 13 Ratio (12-20); Bilirubin,Total 0.9 mg/dL (0.3-1.2); Blood Urea Nitrogen 12 mg/dL (9-23); Calcium 8.8 mg/dL (8.3-10.6); Calcium (Corrected) 8.8 mg/dL (8.5-10.1); Carbon Dioxide 25.6 mMol/L (20.0-31.0); Chloride 106 mMol/L (98-107); Creatinine (Component) 0.9 mg/dL (0.6-1.3); Estimated Creatinine Clearance 119.8 mL/min (>60); Globulin 2.8 gm/dL (2.3-3.5); Glucose 99 mg/dL (74-106); Lipase 54 U/L (12-53); Osmolality,Calculated 280 (275-295); Potassium 4.2 mMol/L (3.4-5.1); Sodium 141 mMol/L (136-145); Total Protein 7.3 gm/dL (5.7-8.2); eGFR > 60 See Note
[2025-03-08 15:25] VITALS: BP 119/74; PULSE 69; RESP 18; TEMP 36.6; O2SAT 98
[2025-03-08 16:05] LABS: Collection Type, Urine Clean Catch; RBC,Urine 0 /hpf (0-3); Squamous Epithelial Cell,Urine 0 /hpf (0-5); WBC,Urine 0 /hpf (0-5)
[2025-03-08 16:25] LABS: Bilirubin,Urine Negative (Negative); Blood,Urine Negative (Negative); Clarity,Urine Clear (Clear/Hazy); Color,Urine Yellow (Lt Yel-Yel); Culture Indicated,Urine Not Indicated; Glucose, Urine Negative (Negative); Ketones,Urine Negative (Negative); Leukocyte Esterase,Urine Negative (Negative); Nitrite,Urine Negative (Negative); PH,Urine 5.5 (5.0-7.0); Protein,Urine Trace (Neg - Trace); Urobilinogen,Urine Negative mg/dL (0.0-1.0)
[2025-03-08 16:30] LABS: Amphetamine/Methamp Scrn,U Positive (Negative); Barbiturate Screen,Urine Negative (Negative); Benzodiazepines Screen,Urine Negative (Negative); Benzoylecgonine Screen, Ur Positive (Negative); Fentanyl Screen,Urine Negative (Negative); Opiate Screen,Urine Negative (Negative); THC Screen,Urine Positive (Negative)
[2025-03-08 16:47] LABS: Bacteria,Urine Rare
--- NOTE | 2025-03-08 16:50 | PC.NURSE ---
na at this time
--- NOTE | 2025-03-08 17:48 | PD.EDRME ---
Rapid Medical Screening Exam RME Arrival date/time: 03/08/25 12:51 39-year-old male presents the emergency department for complaint of abdominal pain and wound to his right foot with delayed healing Chief Complaint: Wound/Laceration Time Seen by Provider: 03/08/25 13:03 Vital signs: Vital Signs Temperature 97.7 F 03/08/25 13:00 Pulse Rate 96 03/08/25 13:00 Respiratory Rate 18 03/08/25 13:00 Blood Pressure 114/75 03/08/25 13:00 Pulse Oximetry (%) 97 03/08/25 13:00 Oxygen Delivery Method Room Air 03/08/25 13:00
== END 2025-03-08 18:03 | disposition left against medical advice (07) ==
LOC: SERX 14:40
PROVIDERS: Nurse Practitioner Primary Care; Emergency Provider Emergency Medicine
DX: R10.84 Generalized abdominal pain (principal); R11.0 Nausea; S91.311A Laceration without foreign body, right foot, initial encounter; X58.XXXA Exposure to other specified factors, initial encounter; Z53.29 Procedure and treatment not carried out because of patient's decision for other reasons
CPT/HCPCS: 36415; 74176; 80053; 80307; 81001; 83690; 85025; 99281

== ENCOUNTER 2025-03-12 12:55 | Emergency (ER) | payer MEDICAID, SELFPAY ==
[2025-03-12 12:56] VITALS: BMI 25.0
[2025-03-12 13:20] VITALS: BP 114/73; PULSE 88; RESP 18; TEMP 36.9; O2SAT 99
--- NOTE | 2025-03-12 13:25 | EDNOTE_ITS ---
ED Abdominal Pain RME/HPI General Chief Complaint: Abdominal Pain Stated complaint: KIDNEY PAIN, ABD PAIN Time seen by provider: 03/12/25 13:24 Arrival date/time: 03/12/25 12:55 39-year-old male with history of polysubstance abuse presents to the emergency department today for complaints of bilateral flank pain. Patient reports he was seen 4 days ago but did not wait for his results. Patient reports no fever nausea or vomiting patient requesting a note for work Limitations: no limitations Related Data Previous Rx's ?Medication ?Instructions ?Recorded benzonatate 100 mg capsule 100 mg PO TID PRN cough #30 caps 10/03/18 (Tessalon Perles) codeine 10 mg-guaifenesin 100 mg/5 5 ml PO QHSPRN PRN cough #118 mL 10/03/18 mL oral liquid (Guaifenesin AC) albuterol sulfate 90 mcg/actuation 2 puff inhalation Q ID #18 grams 06/17/21 aerosol inhaler albuterol sulfate 90 mcg/actuation 2 puff inhalation Q ID PRN 06/17/21 aerosol inhaler shortness of breath or wheez ing #18 grams azithromycin 250 mg tablet See Rx Instructions PO .COM PLEX #6 06/17/21 tabs ibuprofen 800 mg tablet 800 mg PO TID PRN pain #30 t abs 03/10/23 sulfamethoxazole 800 1 tab PO Q12H #14 tabs 02/21 mg-trimethoprim 160 mg tablet (Bactrim DS) ibuprofen 600 mg tablet 600 mg PO Q6H PRN pain #30 t abs 11/04/24 albuterol sulfate 90 mcg/actuation 2 puff inhalation Q 6H PRN 01/12/25 aerosol inhaler shortness of breath or wheez ing #18 grams ibuprofen 600 mg tablet 600 mg PO Q6H PRN pain #30 t abs 01/12/25 mupirocin 2 % topical ointment 1 applic topical BID #1 5 grams 01/31/25 famotidine 20 mg tablet (Pepcid) 20 mg PO QDAY PRN lui n #30 tabs 03/12/25 omeprazole 20 mg capsule,delayed 20 mg PO QDAY 14 days #14 caps 03/12/25 release Allergies Allergy/AdvReac Type Severity Reaction Status Date / Time No Known Allergies Allergy Verified 03/12/25 12:56 Review of Systems Review of Systems Systems Reviewed: All systems reviewed, normal except as documented Constitutional Constitutional: Reports system reviewed and no additional complaints, except as documented, Denies fever(s) and Denies headache(s) Eyes Eyes: Reports system reviewed and no additional complaints, except as documented and Denies blurry vision ENT Ears, Nose, Mouth, and Throat: Reports system reviewed and no additional complaints, except as documented, Denies headache(s), Denies nasal congestion and Denies nasal discharge Cardiovascular Cardiovascular: Reports system reviewed and no additional complaints, except as documented, Denies chest pain and Denies dyspnea Respiratory Respiratory: Reports system reviewed and no additional complaints, except as documented, Denies chest congestion, Denies cough and Denies dyspnea Gastrointestinal Gastrointestinal: Reports system reviewed and no additional complaints, except as documented and Reports abdominal pain Integumentary/Breasts Skin/Breast: Reports system reviewed and no additional complaints, except as documented and Denies rash Neurologic Neurologic: Reports system reviewed and no additional complaints, except as documented, Reports as per HPI and Denies headache(s) Past Medical History Past Medical History CARDIAC: Negative Congestive Heart Failure RESPIRATORY: Negative Chronic Obstructive Pulmonary Disease (COPD) GENITOURINARY: Negative Renal Disease ENDOCRINE: Negative Diabetes Mellitus Type 1 or Diabetes Mellitus Type 2 Social History SMOKING STATUS: Former smoker SUBSTANCE USE: marijuana ED Exam General Limitations: Present no limitations General appearance: Present alert and in no apparent distress Head Head exam: Present atraumatic Eye Eye exam: Present normal appearance, PERRL and EOMI; Absent conjunctival injection ENT ENT exam: Present normal exam, normal oropharynx and mucous membranes moist Neck Neck exam: Present normal inspection, full ROM and trachea midline Chest Chest inspection: Present normal inspection and symmetric chest wall rise Respiratory Respiratory exam: Present normal lung sounds bilaterally Cardiovascular Cardiovascular exam: Present regular rate, normal rhythm and normal heart sounds Abdominal Exam Abdominal exam: Present soft and normal bowel sounds; Absent distention, tenderness, guarding, rebound, rigidity, Anders's sign or tenderness at McBurney's Point Abdominal tenderness: Absent RUQ or RLQ Extremities Exam Extremities exam: Present normal inspection and full ROM Back Exam Back exam: Present normal inspection and full ROM Neurological Exam Neurological exam: Present alert, oriented X3 and CN II-XII intact Psychiatric Psychiatric exam: Present normal affect and normal mood Skin Skin exam: Present warm, dry, intact and normal color Course Quality Measures none Vital Signs Vital signs: Vital Signs Temperature 98.5 F 03/12/25 13:20 Pulse Rate 88 03/12/25 13:20 Respiratory Rate 18 03/12/25 13:20 Blood Pressure 114/73 03/12/25 13:20 Pulse Oximetry (%) 99 03/12/25 13:20 Oxygen Delivery Method Room Air 03/12/25 13:20 O2 saturation 99% room air within normal limits Abdominal Pain MDM MDM Narrative MDM Narrative:: 39-year-old male with history of polysubstance abuse presents to the emergency department today for complaints of bilateral flank pain. Patient reports he was seen 4 days ago but did not wait for his results. Patient reports no fever nausea or vomiting patient requesting a note for work I did explain to the patient I can repeat lab work again patient reports he does not want lab work just needs a note for work Patient has nontender abdomen lungs are clear to auscultation patient reports no chest pain or shortness of breath Patient discharged home in no distress to follow-up with primary care doctor in the next 24 to 48 hours and for any worsening symptoms to return to the ER immediately Patient data External records reviewed:: [facility] previous records Clinical information provided by:: patient Social determinants that could affect healthcare access:: none Patient has the following chronic illnesses:: None How is presenting disease/condition affected by chronic disease/condition?: no chronic disease Evaluation data The following diagnostics were reviewed and interpreted by me:: lab results and other (specify) (N/A) Lab and/or radiology exams considered but not ordered:: Reviewed labs and imaging from previous visit Interpretation Summary: Reviewed labs and imaging from previous visit Medications / Prescriptions Medications or Prescriptions considered but not ordered:: Given Medication administrations:: Given Consultations Consultation(s) initiated? (list below): No Diagnosis Differential diagnosis abdominal pain: abdominal pain, acute appendicitis and pancreatitis Most likely diagnosis given after review of the tests above:: Abdominal pain, polysubstance abuse Admission Indicated Admission indicated?: not indicated Admission Request Was there a request for admission?: No Disposition Plan Disposition Plan: Discharge Discharge Attestation Discharge Attestation: The patient and all family members were given an opportunity to ask questions and understood the discharge instructions. Discharge instructions specifically effects, indications for sooner follow up or return to the emergency department, and the expected course of current diagnosis. Patient condition: Stable Discharge Plan Plan Patient Disposition: HOME (Self Care) Discharge Disposition comment: Stable Prescriptions/Referrals Prescriptions/Med Rec: New famotidine [Pepcid] 20 mg tablet 20 mg PO QDAY PRN (Reason: pain ) Qty: 30 0RF omeprazole 20 mg capsule,delayed release(DR/EC) 20 mg PO QDAY 14 Days Qty: 14 0RF No Action albuterol sulfate 90 mcg/actuation HFA aerosol inhaler 2 puff inhalation QID PRN (Reason: shortness of breath or wheezing) Qty: 18 0RF azithromycin 250 mg tablet See Rx Instructions .ROUTE .COMPLEX Qty: 6 0RF Rx Instructions: take 500 mg today (day 1), then 250 mg for 4 days (days 2-5) albuterol sulfate 90 mcg/actuation HFA aerosol inhaler 2 puff inhalation QID Qty: 18 0RF benzonatate [Tessalon Perles] 100 mg capsule 100 mg PO TID PRN (Reason: cough) Qty: 30 0RF codeine-guaifenesin [Guaifenesin AC] 10-100 mg/5 mL liquid 5 ml PO QHSPRN PRN (Reason: cough) Qty: 118 0RF Rx Instructions: Do not take at the same time as you take your lorazepam if you are still taking ibuprofen 800 mg tablet 800 mg PO TID PRN (Reason: pain) Qty: 30 0RF sulfamethoxazole-trimethoprim [Bactrim DS] 800-160 mg tablet 1 tab PO Q12H Qty: 14 0RF ibuprofen 600 mg tablet 600 mg PO Q6H PRN (Reason: pain) Qty: 30 0RF ibuprofen 600 mg tablet 600 mg PO Q6H PRN (Reason: pain) Qty: 30 0RF albuterol sulfate 90 mcg/actuation HFA aerosol inhaler 2 puff inhalation Q6H PRN (Reason: shortness of breath or wheezing) Qty: 18 0RF mupirocin 2 % ointment 1 applic topical BID Qty: 15 0RF Problem List Clinical Impression: Abdominal pain, Polysubstance abuse Patient/Caregiver Discharge Instructions Education Materials: Abdominal Pain Additional Instructions: Please follow up with your primary care doctor in the next 24-48hrs for any worsening symptoms return here immediately Print Language: Palauan Stand Alone Forms: Anny Award Info., Work/School Release, Patient Portal Info Letter PA/BUSPERSON Supervising Physician PA/BUSPERSON Supervising Physician: Dr penn
== END 2025-03-12 13:28 | disposition home or self-care (01) ==
LOC: SERX 13:44
PROVIDERS: Emergency Provider Emergency Medicine; PCP Physician Assistant
DX: R10.9 Unspecified abdominal pain (principal); F19.11 Other psychoactive substance abuse, in remission
CPT/HCPCS: 99281

== ENCOUNTER 2025-06-27 17:05 | Emergency (ER) | payer MEDICAID, SELFPAY ==
[2025-06-27 17:05] VITALS: BMI 24.4
[2025-06-27 17:14] VITALS: BP 110/73; PULSE 88; RESP 20; TEMP 36.8; O2SAT 96
--- NOTE | 2025-06-27 17:42 | XR_ITS ---
Examination: CT abdomen and pelvis without contrast. Coronal 3-D reconstructions. Sagittal 2-D reconstructions. Date and time of exam:June 27, 2025, 1822 hrs., Comparison 06/08/2025 Indications: Right and left flank pain beginning 7 days ago, history right renal calculus 62,025. CTDI: vol (mGy): 6.35. DLP: (mGycm): 384. Technique: Axial images of the abdomen have been obtained, 3 mm slice thickness Intravenous contrast material has not been administered. Low dose protocols were performed. One or more of the following dose reduction techniques were used; automated exposure control, adjustment of the mA and/or KV according to patient size, use of iterative reconstruction technique. Findings: No focal liver or splenic lesion. No gallstones. No pancreatic or adrenal mass. 2 mm lower pole right renal calculus. 1 mm lower pole left renal calculus. No hydronephrosis or ureteral calculi. Normal appendix. No bowel obstruction. No bladder mass or bladder calculi. Moderate degenerative disc disease L5-S1. Impression: Bilateral nonobstructing renal calculi. No hydronephrosis or ureteral calculi. Normal appendix.
--- NOTE | 2025-06-27 17:43 | PD.EDRME ---
Rapid Medical Screening Exam RME Arrival date/time: 06/27/25 17:05 39-year-old male presents to the emergency department for complaints of abdominal pain Chief Complaint: Abdominal Pain Vital signs: Vital Signs Temperature 98.3 F 06/27/25 17:14 Pulse Rate 88 06/27/25 17:14 Respiratory Rate 20 06/27/25 17:14 Blood Pressure 110/73 06/27/25 17:14 Pulse Oximetry (%) 96 06/27/25 17:14 Oxygen Delivery Method Room Air 06/27/25 17:14
[2025-06-27 18:35] LABS: Basophils # (Auto) 0.0 Thou/mm3 (0.0-0.2); Basophils % (Auto) 1 % (0-2.5); Eosinophils # (Auto) 0.2 Thou/mm3 (0.0-0.5); Eosinophils % (Auto) 3 % (0-10); Hematocrit 43.9 % (41.0-53.0); Hemoglobin 14.7 g/dL (13.5-16.0); Immature Granulocytes Auto 0.01 Thou/mm3 (0.00-0.00); Lymphocytes # (Auto) 1.9 Thou/mm3 (1.0-4.8); Lymphocytes % (Auto) 30 % (10-50); Mean Corpuscular HGB Conc 33.5 g/dl (31.0-37.0); Mean Corpuscular Hemoglobin 31.6 pg (25.0-35.0); Mean Corpuscular Volume 94 fL (80-100); Monocytes # (Auto) 0.7 Thou/mm3 (0.0-0.8); Monocytes % (Auto) 11 % (0-12); Neutrophils # (Auto) 3.5 Thou/mm3 (1.8-7.7); Neutrophils % (Auto) 56 % (37-80); Nucleated Red Blood Cell # 0.00 Thou/mm3 (0.00-0.00); Nucleated Red Blood Cell % 0 /100 WBC (0); Platelet Count 264 Thou/mm3 (140-440); RDW Standard Deviation 46.4 fL (35.1-43.9); Red Blood Count 4.65 Miln/mm3 (4.50-5.90); White Blood Count 6.3 Thou/mm3 (3.8-10.6)
[2025-06-27 18:48] LABS: Alanine Aminotransferase 18 U/L (10-49); Albumin, Serum 4.5 gm/dL (3.5-5.0); Albumin/Globulin Ratio 1.9 (1.2-2.2); Alkaline Phosphatase 47 U/L (46-116); Anion Gap 9 (7-16); Aspartate Amino Transferase 21 U/L (0-34); BUN/Creatinine Ratio 8 Ratio (12-20); Bilirubin,Total 1.0 mg/dL (0.3-1.2); Blood Urea Nitrogen 9 mg/dL (9-23); Calcium 10.1 mg/dL (8.3-10.6); Calcium (Corrected) 10.1 mg/dL (8.5-10.1); Carbon Dioxide 28.9 mMol/L (20.0-31.0); Chloride 103 mMol/L (98-107); Creatinine (Component) 1.1 mg/dL (0.6-1.3); Estimated Creatinine Clearance 98.0 mL/min (>60); Globulin 2.4 gm/dL (2.3-3.5); Glucose 111 mg/dL (74-106); Lipase 47 U/L (12-53); Osmolality,Calculated 280 (275-295); Potassium 4.0 mMol/L (3.4-5.1); Sodium 141 mMol/L (136-145); Total Protein 6.9 gm/dL (5.7-8.2); eGFR > 60 See Note
--- NOTE | 2025-06-27 20:28 | EDNOTE_ITS ---
ED Abdominal Pain RME/HPI General Chief Complaint: Abdominal Pain Stated complaint: LEFT ABD PAIN SINCE 06/15 Time seen by provider: 06/27/25 17:43 Arrival date/time: 06/27/25 17:05 RME / HPI RME / HPI narrative: 06/27/25 17:05 39-year-old male presents to the emergency department for complaints of abdominal pain ------ See MDM for Dr. Moss's HPI documentation. Related Data Previous Rx's ?Medication ?Instructions ?Recorded benzonatate 100 mg capsule 100 mg PO TID PRN cough #30 caps 10/03/18 (Tessalon Perles) codeine 10 mg-guaifenesin 100 mg/5 5 ml PO QHSPRN PRN cough #118 mL 10/03/18 mL oral liquid (Guaifenesin AC) albuterol sulfate 90 mcg/actuation 2 puff inhalation Q ID #18 grams 06/17/21 aerosol inhaler albuterol sulfate 90 mcg/actuation 2 puff inhalation Q ID PRN 06/17/21 aerosol inhaler shortness of breath or wheez ing #18 grams azithromycin 250 mg tablet See Rx Instructions PO .COM PLEX #6 06/17/21 tabs ibuprofen 800 mg tablet 800 mg PO TID PRN pain #30 t abs 03/10/23 sulfamethoxazole 800 1 tab PO Q12H #14 tabs 02/21 mg-trimethoprim 160 mg tablet (Bactrim DS) ibuprofen 600 mg tablet 600 mg PO Q6H PRN pain #30 t abs 11/04/24 albuterol sulfate 90 mcg/actuation 2 puff inhalation Q 6H PRN 01/12/25 aerosol inhaler shortness of breath or wheez ing #18 grams ibuprofen 600 mg tablet 600 mg PO Q6H PRN pain #30 t abs 01/12/25 mupirocin 2 % topical ointment 1 applic topical BID #1 5 grams 01/31/25 famotidine 20 mg tablet (Pepcid) 20 mg PO QDAY PRN lui n #30 tabs 03/12/25 acetaminophen 300 mg-codeine 30 mg 2 tab PO Q8H PRN pa in #20 tabs 06/27/25 tablet ibuprofen 800 mg tablet 800 mg PO Q8H PRN pain #30 t abs 06/27/25 Allergies Allergy/AdvReac Type Severity Reaction Status Date / Time No Known Allergies Allergy Verified 06/27/25 17:07 Review of Systems Review of Systems Systems Reviewed: All systems reviewed, normal except as documented Past Medical History Past Medical History CARDIAC: Negative Congestive Heart Failure RESPIRATORY: Negative Chronic Obstructive Pulmonary Disease (COPD) GENITOURINARY: Negative Renal Disease ENDOCRINE: Negative Diabetes Mellitus Type 1 or Diabetes Mellitus Type 2 Social History SMOKING STATUS: Current some day smoker SUBSTANCE USE: marijuana ED Exam Narrative Physical exam: See [facility] for Dr. Moss's physical exam documentation. Course Quality Measures none Orders Category Date Time Status CT abdomen pelvis wo con Stat Exams 06/27/25 17:42 Completed CBC Stat Lab 06/27/25 17:50 Completed Comprehensive Metabolic Panel Stat Lab 06/27/25 17:50 Completed Lipase Stat Lab 06/27/25 17:50 Completed Vital Signs Vital signs: Vital Signs Temperature 98.3 F 06/27/25 17:14 Pulse Rate 88 06/27/25 17:14 Respiratory Rate 20 06/27/25 17:14 Blood Pressure 110/73 06/27/25 17:14 Pulse Oximetry (%) 96 06/27/25 17:14 Oxygen Delivery Method Room Air 06/27/25 17:14 Abdominal Pain [facility] Narrative [facility] Narrative:: This section includes all my notes and documentations, including HPI, PE, and ED course. Chuy Moss MD HPI: 39yo male here with left-sided abdominal pain for the last 1 week. Pain worsens with movement. No nausea or vomiting. No other complaints reported. ROS: All negative except as documented in HPI. Physical Exam: General: Alert and oriented. No acute distress when remaining still. Eyes: Conjunctivae and lids clear. ENT: No nasal congestion. Neck: Supple. Heart: RRR. Lungs: No respiratory distress. Good air movement. No rhonchi, wheezing, rales. Abdomen: Soft with left flank area tenderness. Normal bowel sounds. No distension. No rebound or guarding. Skin: Warm and dry. Neuro: Alert and oriented X 3. I reviewed all diagnostic test results. My review of the CT abdomen pelvis report is NAD. Blood tests are unremarkable. At this point, diagnoses include: Abdominal muscle strain Recommended supportive care. Based on my best medical judgment, made decision no further evaluation or treatment indicated at this time. Patient understands and agrees to the discharge instructions customized and printed, see below. Discharge Instructions from Dr. Moss printed for you: 1. After extensive evaluation, there is no emergency inside your abdomen. Such as appendicitis needing emergent surgery. 2. The pain is originating from the outside, due to small tears of the muscles. See attached handout. 3. Ibuprofen 800 mg every 6-8 hours today and tomorrow to decrease inflammation then as needed. 4. Tylenol with Codeine for severe pain. 5. Apply ice or heat if helpful. 6. See a private doctor on 07/01/1975 for recheck. Ask to review all test results and official radiology reports, to make sure you receive all necessary follow-ups and monitoring. To make sure there is no serious intra-abdominal condition, ask for help with more investigation not available here in the ER. Such as EGD or scoping the stomach, colonoscopy or scoping the colon, and referral to see software sales manager. 7. Seek immediate medical care with worsening or with any concerns. Chuy Moss MD Patient data External records reviewed:: [facility] previous records (Per chart review, patient was seen here on 03/17/25 for abdominal pain.) Clinical information provided by:: patient Social determinants that could affect healthcare access:: none Patient has the following chronic illnesses:: none How is presenting disease/condition affected by chronic disease/condition?: no chronic disease Evaluation data The following diagnostics were reviewed and interpreted by me:: lab results and radiology exam(s) Lab and/or radiology exams considered but not ordered:: none Interpretation Summary: I reviewed all diagnostic test results. My review of the CT abdomen pelvis report is NAD. Blood tests are unremarkable. Medications / Prescriptions Medications or Prescriptions considered but not ordered:: none Medication administrations:: none Consultations Consultation(s) initiated? (list below): No Diagnosis Differential diagnosis abdominal pain: calculus of kidney, diverticulitis, pancreatitis and other (musculoskeletal pain) Most likely diagnosis given after review of the tests above:: Abdominal muscle strain Admission Indicated Admission indicated?: not indicated Explain why admission is indicated or not indicated:: With no condition needing emergent intervention, there was no indication for admission. Admission Request Was there a request for admission?: No Disposition Plan Disposition Plan: Discharge Discharge Attestation Discharge Attestation: The patient and all family members were given an opportunity to ask questions and understood the discharge instructions. Discharge instructions specifically effects, indications for sooner follow up or return to the emergency department, and the expected course of current diagnosis. Patient condition: Stable Discharge Plan Plan Patient Disposition: HOME (Self Care) Prescriptions/Referrals Prescriptions/Med Rec: New ibuprofen 800 mg tablet 800 mg PO Q8H PRN (Reason: pain) Qty: 30 0RF acetaminophen-codeine 300-30 mg tablet 2 tab PO Q8H MDD 6 PRN (Reason: pain) Qty: 20 0RF No Action albuterol sulfate 90 mcg/actuation HFA aerosol inhaler 2 puff inhalation QID PRN (Reason: shortness of breath or wheezing) Qty: 18 0RF azithromycin 250 mg tablet See Rx Instructions .ROUTE .COMPLEX Qty: 6 0RF Rx Instructions: take 500 mg today (day 1), then 250 mg for 4 days (days 2-5) albuterol sulfate 90 mcg/actuation HFA aerosol inhaler 2 puff inhalation QID Qty: 18 0RF benzonatate [Tessalon Perles] 100 mg capsule 100 mg PO TID PRN (Reason: cough) Qty: 30 0RF codeine-guaifenesin [Guaifenesin AC] 10-100 mg/5 mL liquid 5 ml PO QHSPRN PRN (Reason: cough) Qty: 118 0RF Rx Instructions: Do not take at the same time as you take your lorazepam if you are still taking ibuprofen 800 mg tablet 800 mg PO TID PRN (Reason: pain) Qty: 30 0RF famotidine [Pepcid] 20 mg tablet 20 mg PO QDAY PRN (Reason: pain ) Qty: 30 0RF sulfamethoxazole-trimethoprim [Bactrim DS] 800-160 mg tablet 1 tab PO Q12H Qty: 14 0RF ibuprofen 600 mg tablet 600 mg PO Q6H PRN (Reason: pain) Qty: 30 0RF ibuprofen 600 mg tablet 600 mg PO Q6H PRN (Reason: pain) Qty: 30 0RF albuterol sulfate 90 mcg/actuation HFA aerosol inhaler 2 puff inhalation Q6H PRN (Reason: shortness of breath or wheezing) Qty: 18 0RF mupirocin 2 % ointment 1 applic topical BID Qty: 15 0RF Referrals: Kendal Mercado PA-C [Primary Care Provider, Family Practice] - In 1 week Problem List Clinical Impression: Abdominal muscle strain Patient/Caregiver Discharge Instructions Discharge Activity: activity as tolerated Education Materials: ED Muscle Strain, Abdomen Additional Instructions: Discharge Instructions from Dr. Moss printed for you: 1. After extensive evaluation, there is no emergency inside your abdomen. Such as appendicitis needing emergent surgery. 2. The pain is originating from the outside, due to small tears of the muscles. See attached handout. 3. Ibuprofen 800 mg every 6-8 hours today and tomorrow to decrease inflammation then as needed. 4. Tylenol with Codeine for severe pain. 5. Apply ice or heat if helpful. 6. See a private doctor on 07/01/1975 for recheck. Ask to review all test results and official radiology reports, to make sure you receive all necessary follow-ups and monitoring. To make sure there is no serious intra-abdominal condition, ask for help with more investigation not available here in the ER. Such as EGD or scoping the stomach, colonoscopy or scoping the colon, and referral to see software sales manager. 7. Seek immediate medical care with worsening or with any concerns. Print Language: Occitan Stand Alone Forms: Anny Award Info., Patient Portal Info Letter
[2025-06-27 20:35] VITALS: BP 123/80; PULSE 77; RESP 19; TEMP 36.7; O2SAT 97
== END 2025-06-27 20:53 | disposition home or self-care (01) ==
PROVIDERS: Nurse Practitioner Primary Care; Emergency Provider Emergency Medicine; PCP Physician Assistant
DX: S39.011A Strain of muscle, fascia and tendon of abdomen, initial encounter (principal); X58.XXXA Exposure to other specified factors, initial encounter
CPT/HCPCS: 36415; 74176; 80053; 81001; 83690; 85025; 99283

== ENCOUNTER 2025-09-07 09:51 | Emergency (ER) | payer MEDICAID, SELFPAY ==
[2025-09-07 09:51] VITALS: PULSE 86; RESP 18; O2SAT 98
[2025-09-07 11:03] VITALS: BP 126/84; PULSE 75; RESP 18; TEMP 36.6; O2SAT 95; BMI 23.4
--- NOTE | 2025-09-07 11:29 | PD.EDRME ---
Rapid Medical Screening Exam [facility] Arrival date/time: 09/07/25 09:51 Chief Complaint: Abdominal Pain Vital signs: Vital Signs Temperature 97.8 F 09/07/25 11:03 Pulse Rate 75 09/07/25 11:03 Respiratory Rate 18 09/07/25 11:03 Blood Pressure 126/84 09/07/25 11:03 Pulse Oximetry (%) 95 09/07/25 11:03 Oxygen Delivery Method Room Air 09/07/25 11:03 RME Narrative: 39-year-old male presents to the ER complaining of left-sided abdominal pain x 6 days. Denies any fever, vomit, diarrhea. I briefly performed a screening evaluation to initiate work-up and expedite care. Complete history, physical exam, and plan of care is deferred to the provider in the main ED. Exam: Head: Normocephalic, atraumatic. Respiratory: Normal effort. No respiratory distress or accessory muscle use. Neuro: Speech normal. Skin: Warm, dry, normal color. Psych: Pleasant. Normal affect. Cooperative. Clinical Impression: Abdominal pain
--- NOTE | 2025-09-07 11:30 | XR_ITS ---
Examination: CT abdomen and pelvis without contrast. Coronal 3-D reconstructions. Sagittal 2-D reconstructions. Date and time of exam: September 07, 2025, 1334 hours, comparison 06/27/2025 INDICATIONS: Left sided abdominal and flank pain beginning 6 days ago, history kidney stones on 06/27/2025 examination CTDI: vol (mGy): 7.15 DLP: (mGycm): 395 Technique: Axial images of the abdomen have been obtained, 3 mm slice thickness Intravenous contrast material has not been administered. Low dose protocols were performed. One or more of the following dose reduction techniques were used; automated exposure control, adjustment of the mA and/or KV according to patient size, use of iterative reconstruction technique. Findings: No focal liver or splenic lesions No gallstones No pancreatic or adrenal mass. Bilateral 1 to 3 mm renal calculi No hydronephrosis or ureteral calculi Small lower pole left renal parapelvic cysts Normal appendix No bowel obstruction or diverticulitis No prostatomegaly No bladder mass or bladder calculi Moderate to advanced degenerative disc disease L5-S1 IMPRESSION: Multiple 1 to 3 mm bilateral renal calculi, no hydronephrosis or ureteral calculi Normal appendix No bowel obstruction diverticulitis or free air No bladder mass or bladder calculi
[2025-09-07 12:23] LABS: Basophils # (Auto) 0.0 Thou/mm3 (0.0-0.2); Basophils % (Auto) 0 % (0-2.5); Eosinophils # (Auto) 0.2 Thou/mm3 (0.0-0.5); Eosinophils % (Auto) 3 % (0-10); Hematocrit 46.1 % (41.0-53.0); Hemoglobin 15.6 g/dL (13.5-16.0); Immature Granulocytes Auto 0.01 Thou/mm3 (0.00-0.00); Lymphocytes # (Auto) 1.7 Thou/mm3 (1.0-4.8); Lymphocytes % (Auto) 29 % (10-50); Mean Corpuscular HGB Conc 33.8 g/dl (31.0-37.0); Mean Corpuscular Hemoglobin 31.7 pg (25.0-35.0); Mean Corpuscular Volume 94 fL (80-100); Monocytes # (Auto) 0.6 Thou/mm3 (0.0-0.8); Monocytes % (Auto) 11 % (0-12); Neutrophils # (Auto) 3.3 Thou/mm3 (1.8-7.7); Neutrophils % (Auto) 57 % (37-80); Nucleated Red Blood Cell # 0.00 Thou/mm3 (0.00-0.00); Nucleated Red Blood Cell % 0 /100 WBC (0); Platelet Count 305 Thou/mm3 (140-440); RDW Standard Deviation 45.6 fL (35.1-43.9); Red Blood Count 4.92 Miln/mm3 (4.50-5.90); White Blood Count 5.8 Thou/mm3 (3.8-10.6)
[2025-09-07 12:38] LABS: Alanine Aminotransferase 25 U/L (10-49); Albumin, Serum 5.0 gm/dL (3.5-5.0); Albumin/Globulin Ratio 2.3 (1.2-2.2); Alkaline Phosphatase 55 U/L (46-116); Anion Gap 8 (7-16); Aspartate Amino Transferase 26 U/L (0-34); BUN/Creatinine Ratio 10 Ratio (12-20); Bilirubin,Total 1.2 mg/dL (0.3-1.2); Blood Urea Nitrogen 7 mg/dL (9-23); Calcium 9.6 mg/dL (8.3-10.6); Calcium (Corrected) 9.6 mg/dL (8.5-10.1); Carbon Dioxide 30.1 mMol/L (20.0-31.0); Chloride 103 mMol/L (98-107); Creatinine (Component) 0.7 mg/dL (0.6-1.3); Estimated Creatinine Clearance 154.0 mL/min (>60); Globulin 2.2 gm/dL (2.3-3.5); Glucose 110 mg/dL (74-106); Lipase 43 U/L (12-53); Osmolality,Calculated 280 (275-295); Potassium 4.4 mMol/L (3.4-5.1); Sodium 141 mMol/L (136-145); Total Protein 7.2 gm/dL (5.7-8.2); eGFR > 60 See Note
[2025-09-07 12:45] LABS: Collection Type, Urine Pedi-Bag; Squamous Epithelial Cell,Urine 0 /hpf (0-5)
[2025-09-07 13:29] LABS: Bilirubin,Urine Negative (Negative); Blood,Urine Negative (Negative); Clarity,Urine Clear (Clear/Hazy); Color,Urine Yellow (Lt Yel-Yel); Glucose, Urine Negative (Negative); Ketones,Urine Negative (Negative); Leukocyte Esterase,Urine Negative (Negative); Nitrite,Urine Negative (Negative); PH,Urine 7.5 (5.0-7.0); Protein,Urine Trace (Neg - Trace); RBC,Urine < 1 /hpf (0-3); Specific Gravity,Urine 1.014 (1.001-1.035); Transitional Epi Cells,Urine < 1 /hpf (0-5); Urobilinogen,Urine Negative mg/dL (0.0-1.0); WBC,Urine 1 /hpf (0-5)
[2025-09-07 13:30] LABS: Sperm,Urine Present
--- NOTE | 2025-09-07 15:42 | EDNOTE_ITS ---
ED Abdominal Pain RME/HPI General Chief Complaint: Abdominal Pain Stated complaint: ABD PAIN LEFT SIDE X1 WEEK, NAUSEA/DIARRHEA Time seen by provider: 09/07/25 14:34 Arrival date/time: 09/07/25 1400 39-year-old male patient came in for evaluation regarding abdominal pain. Has been having abdominal pain for 1 week, left-sided location, severity moderate, associated with nausea diarrhea nonbloody. No fever no other complaints noted. Patient is ambulatory. RME / HPI RME / HPI narrative: 39-year-old male presents to the ER complaining of left-sided abdominal pain x 6 days. Denies any fever, vomit, diarrhea. I briefly performed a screening evaluation to initiate work-up and expedite care. Complete history, physical exam, and plan of care is deferred to the provider in the main ED. Exam: Head: Normocephalic, atraumatic. Respiratory: Normal effort. No respiratory distress or accessory muscle use. Neuro: Speech normal. Skin: Warm, dry, normal color. Psych: Pleasant. Normal affect. Cooperative. Impression: Abdominal pain Related Data Previous Rx's ?Medication ?Instructions ?Recorded benzonatate 100 mg capsule 100 mg PO TID PRN cough #30 caps 10/03/18 (Tesmarcial Meredith) codeine 10 mg-guaifenesin 100 mg/5 5 ml PO QHSPRN PRN cough #118 mL 10/03/18 mL oral liquid (Guaifenesin AC) albuterol sulfate 90 mcg/actuation 2 puff inhalation Q ID #18 grams 06/17/21 aerosol inhaler albuterol sulfate 90 mcg/actuation 2 puff inhalation Q ID PRN 06/17/21 aerosol inhaler shortness of breath or wheez ing #18 grams azithromycin 250 mg tablet See Rx Instructions PO .COM PLEX #6 06/17/21 tabs ibuprofen 800 mg tablet 800 mg PO TID PRN pain #30 t abs 03/10/23 sulfamethoxazole 800 1 tab PO Q12H #14 tabs 02/21 mg-trimethoprim 160 mg tablet (Bactrim DS) ibuprofen 600 mg tablet 600 mg PO Q6H PRN pain #30 t abs 11/04/24 albuterol sulfate 90 mcg/actuation 2 puff inhalation Q 6H PRN 01/12/25 aerosol inhaler shortness of breath or wheez ing #18 grams ibuprofen 600 mg tablet 600 mg PO Q6H PRN pain #30 t abs 01/12/25 mupirocin 2 % topical ointment 1 applic topical BID #1 5 grams 01/31/25 famotidine 20 mg tablet (Pepcid) 20 mg PO QDAY PRN lui n #30 tabs 03/12/25 acetaminophen 300 mg-codeine 30 mg 2 tab PO Q8H PRN pa in #20 tabs 06/27/25 tablet ibuprofen 800 mg tablet 800 mg PO Q8H PRN pain #30 t abs 06/27/25 Allergies Allergy/AdvReac Type Severity Reaction Status Date / Time No Known Allergies Allergy Verified 09/07/25 09:54 Review of Systems Review of Systems Narrative Review of Systems: Review of system reviewed and within normal limits except mentioned in HPI ED Exam Narrative Physical exam: VITAL SIGNS: Reviewed. GENERAL APPEARANCE: Alert and interactive, follows commands, no acute distress, HEAD AND FACE: Non-traumatic. ENT: PERRL, pink conjunctivitis, eyelid no trauma, Mucous membrane moist. NECK: Supple, nontender, no nuchal rigidity. CHEST: No tenderness, no crepitus, no paradoxical movement, no retractions. LUNGS: Clear, well ventilated, symmetric, no rales, no wheezing, no ronchi, no stridor, good breath sounds bilaterally. HEART: Regular rate, regular rhythm, no murmur, no gallops. ABDOMEN: Soft, positive bowel sounds, nondistended, no guarding, left-sided abdominal pain/tenderness, no rebound, no masses, RECTAL: Deferred. GENITAL: Deferred. NEUROLOGICAL: Gross motor function intact sensory function intact, Appropriate for age. MUSCULOSKELETAL: low back nontender, full range of motion. EXTREMITIES: Nontender, full range of motion. SKIN: Color pink, dry, no rash, no lacerations, no abrasions, no contusions. LYMPHATICS: Deferred. Course Quality Measures none Orders Category Date Time Status CT abdomen pelvis wo con Stat Exams 09/07/25 11:30 Completed CBC Stat Lab 09/07/25 12:01 Completed CMP [Comprehensive Metabolic Panel] Stat Lab 09/07/25 12:01 Completed Lipase Stat Lab 09/07/25 12:01 Completed Urinalysis Stat Lab 09/07/25 12:34 Completed Vital Signs Vital signs: Vital Signs Temperature 97.8 F 11/15/25 11:03 Pulse Rate 75 09/07/25 11:03 Respiratory Rate 18 09/07/25 11:03 Blood Pressure 126/84 09/07/25 11:03 Pulse Oximetry (%) 95 09/07/25 11:03 Oxygen Delivery Method Room Air 09/07/25 11:03 Abdominal Pain MDM MDM Narrative MDM Narrative:: 39-year-old male patient came in for evaluation regarding abdominal pain. Has been having abdominal pain for 1 week, left-sided location, severity moderate, associated with nausea diarrhea nonbloody. No fever no other complaints noted. Patient is ambulatory. Patient's workup today all came back unremarkable no leukocytosis noted, LFTs unremarkable urinalysis no UTI, CT scan of the abdomen pelvis showed 39-year-old male patient came in for evaluation regarding abdominal pain. Has been having abdominal pain for 1 week, left-sided location, severity moderate, associated with nausea diarrhea nonbloody. No fever no other complaints noted. Patient is ambulatory. Results was not able to discussed with the patient since patient is gone eloped from the emergency room Patient data External records reviewed:: None Clinical information provided by:: patient Social determinants that could affect healthcare access:: substance use Patient has the following chronic illnesses:: None How is presenting disease/condition affected by chronic disease/condition?: no chronic disease Evaluation data The following diagnostics were reviewed and interpreted by me:: lab results and radiology exam(s) Lab and/or radiology exams considered but not ordered:: None see results above Interpretation Summary: See results above Medications / Prescriptions Medications or Prescriptions considered but not ordered:: None Medication administrations:: None Consultations Consultation(s) initiated? (list below): No Diagnosis Differential diagnosis abdominal pain: abdominal pain, calculus of kidney and diverticulitis Most likely diagnosis given after review of the tests above:: Kidney stone, abdominal pain, gastroenteritis Admission Indicated Admission indicated?: not indicated ([facility]) Admission Request Was there a request for admission?: No Admission Attestation Admission request attestation: [facility] Disposition Plan Disposition Plan: other (specify) Discharge Plan Plan Patient Disposition: [facility] Prescriptions/Referrals Prescriptions/Med Rec: No Action albuterol sulfate 90 mcg/actuation HFA aerosol inhaler 2 puff inhalation QID PRN (Reason: shortness of breath or wheezing) Qty: 18 0RF azithromycin 250 mg tablet See Rx Instructions .ROUTE .COMPLEX Qty: 6 0RF Rx Instructions: take 500 mg today (day 1), then 250 mg for 4 days (days 2-5) albuterol sulfate 90 mcg/actuation HFA aerosol inhaler 2 puff inhalation QID Qty: 18 0RF benzonatate [Tessalon Perles] 100 mg capsule 100 mg PO TID PRN (Reason: cough) Qty: 30 0RF codeine-guaifenesin [Guaifenesin AC] 10-100 mg/5 mL liquid 5 ml PO QHSPRN PRN (Reason: cough) Qty: 118 0RF Rx Instructions: Do not take at the same time as you take your lorazepam if you are still taking ibuprofen 800 mg tablet 800 mg PO TID PRN (Reason: pain) Qty: 30 0RF famotidine [Pepcid] 20 mg tablet 20 mg PO QDAY PRN (Reason: pain ) Qty: 30 0RF ibuprofen 800 mg tablet 800 mg PO Q8H PRN (Reason: pain) Qty: 30 0RF acetaminophen-codeine 300-30 mg tablet 2 tab PO Q8H MDD 6 PRN (Reason: pain) Qty: 20 0RF sulfamethoxazole-trimethoprim [Bactrim DS] 800-160 mg tablet 1 tab PO Q12H Qty: 14 0RF ibuprofen 600 mg tablet 600 mg PO Q6H PRN (Reason: pain) Qty: 30 0RF ibuprofen 600 mg tablet 600 mg PO Q6H PRN (Reason: pain) Qty: 30 0RF albuterol sulfate 90 mcg/actuation HFA aerosol inhaler 2 puff inhalation Q6H PRN (Reason: shortness of breath or wheezing) Qty: 18 0RF mupirocin 2 % ointment 1 applic topical BID Qty: 15 0RF Problem List Clinical Impression: Abdominal pain, Calculus of kidney Patient/Caregiver Discharge Instructions Education Materials: Abdominal Pain Print Language: Georgian
--- NOTE | 2025-09-07 15:45 | PC.NURSE ---
NO ANSWER WHEN CALLED FOR REVIEW OF RESULTS WITH ED PROVIDER IN LOBBY OR OUTSIDE OF ED @ [phone].
== END 2025-09-07 15:45 | disposition left against medical advice (07) ==
LOC: SERX 16:12
PROVIDERS: Physician Assistant; Emergency Provider Nurse Practitioner Family
DX: N20.0 Calculus of kidney (principal)
CPT/HCPCS: 36415; 74176; 80053; 81001; 83690; 85025; 99283